=== PATIENT | male | born 1950 | race Caucasian/White ===

== ENCOUNTER 2016-06-22 05:16 | Day surgery (SDC) | payer BC ==
[2016-06-15 09:37] VITALS: BMI 27.0; BMI 28.0
--- NOTE | 2016-06-15 10:25 | PAT Medication Instructions ---
Service Date Jun 15, 2016. Current Home Medication List Ascorbic Acid (Vitamin C), 1 TAB PO QDD Aspirin (Aspirin Ec), 81 MG PO QAM Ctvzinftcmn-Zlepqevzldo-Sez C- (Glucosamine Chondroitin), Unknown Dose PO QAM Multivitamin (Multivitamin), 1 TAB PO QAM Omeprazole (Omeprazole), 1 TAB PO QAM Rivaroxaban (Xarelto), 20 MG PO QAM Medication Instructions For Your Scheduled Surgery Aspirin (Aspirin Ec), 81 MG PO QAM (hold 5 days prior to surgery per surgeon instructions) Rivaroxaban (Xarelto), 20 MG PO QAM (hold 5 days prior to surgery per surgeon instructions- patient will check with surgeon to see if heme wants Lovenox bridge) - Hold the following medications starting today 06/15/16: Wphcvuedtop-Thbzqhxrqhc-Urr C- (Glucosamine Chondroitin), Unknown Dose PO QAM - Hold the following medications the morning of surgery: Multivitamin (Multivitamin), 1 TAB PO QAM Ascorbic Acid (Vitamin C), 1 TAB PO QDD - Take the following medications the morning of surgery with a sip of water: Omeprazole (Omeprazole), 1 TAB PO QAM If you have any questions please call us at [phone] or [phone] ( Kayla) or [phone]
[2016-06-15 10:47] LABS: BASO % 0.4 %; BASO ABS # 0.02 K/uL (0-0.2); COMPLETE YES; EOS % 6.6 %; HEMATOCRIT 43.5 % (42-52); IG% 0.2 %; LYMPH % 26.6 %; LYMPH ABS # 1.36 K/uL (1.2-3.4); MEAN CELL VOLUME 93.3 fL (80-100); MEAN CORPUSCULAR HEMOGLOBIN 32.6 pg (25-34); MEAN CORPUSCULAR HGB CONC 34.9 g/dl (32-36); MEAN PLATELET VOLUME 10.4 fL (7.4-10.4); MONO % 9.2 %; PLATELET COUNT 217 K/uL (130-400); RED BLOOD COUNT 4.66 M/uL (4.7-6.1); WHITE BLOOD COUNT 5.12 K/uL (4.8-10.8)
[2016-06-15 10:50] LABS: URINE APPEARANCE CLEAR (CLEAR); URINE BILIRUBIN NEG (NEG); URINE COLOR YELLOW; URINE NITRITE NEG (NEG); URINE SPECIFIC GRAVITY 1.006 (1.000-1.030); UROBILINOGEN NEG (NEG); ZZUR CULT IF INDIC CLEAN CATCH NO
[2016-06-15 10:54] LABS: MANUAL MICROSCOPIC REQUIRED? NO; REVIEW REQ? NO
[2016-06-15 11:02] LABS: INR 1.2 (0.9-1.1); PARTIAL THROMBOPLASTIN RATIO 1.1; PROTHROMBIN TIME (PATIENT) 13.3 SECONDS (9.0-12.0)
[2016-06-15 11:30] LABS: BUN/CREATININE RATIO 16.7 (10-20); CALCIUM 8.8 mg/dl (8.5-10.1); CREATININE 0.97 mg/dl (0.60-1.40); POTASSIUM 4.3 mmol/L (3.5-5.1)
[~2016-06-22] VITALS: Ht 175.3 cm; Wt 87.0 kg
[~2016-06-22 05:16] MED LIST: ASCO250T4 PO; ASPI81TA28 PO; GLUC1CAP35 PO; MULT-506 PO; OMEP20TA PO; RIVA1TAB4 PO
[2016-06-22] MEDS ORDERED: ENOX120I SQ (05:42)
[2016-06-22 05:44] VITALS: BP 151/85; PULSE 54; TEMP 36.7; O2SAT 98; Ht 175.3 cm; Wt 87.0 kg
[2016-06-22] MEDS ORDERED: CEFAZOLIN 2000 MG/60 ML D5W IV SCH (06:00)
[2016-06-22] MEDS ORDERED: LACTATED RINGER'S 1000ML 1,000 ML IV SCH ×2 (06:00→08:37)
[2016-06-22] MEDS ORDERED: HEPARIN SOD 5000 UNIT/0.5 ML CARP SQ SCH (06:00)
[2016-06-22] MEDS ORDERED: LIDOCAINE HCL 2% 2 ML VIAL (20MG/ML) ONE (06:56)
[2016-06-22] MEDS ORDERED: FENTANYL CITRATE INJ 50 MCG/1 ML 2 ML VIAL ONE (06:56)
[2016-06-22] MEDS ORDERED: PROPOFOL IV EMULSION 10 MG/ML 20 ML VIAL IV ONE (06:56)
[2016-06-22] MEDS ORDERED: MIDAZOLAM HCL 1 MG/ML 2ML VIAL ONE (06:56)
[2016-06-22] MEDS ORDERED: ATROPINE SULFATE 0.1 MG/ML 5ML SYR IV PRN (07:15)
[2016-06-22] MEDS ORDERED: EpHEDrine SULFATE INJ 50 MG/ML AMP IV PRN (07:15)
[2016-06-22] MEDS ORDERED: FENTANYL CITRATE INJ 50 MCG/1 ML 2 ML VIAL IV PRN (07:15)
[2016-06-22] MEDS ORDERED: ONDANSETRON INJ 2 MG/ML 2 ML VIAL IV PRN ×2 (07:15→08:45)
--- NOTE | 2016-06-22 07:16 | History & Physical Bridge Note ---
H&P Re-Evaluation Bridge Note: I have examined the patient, reviewed the History & Physical and in the interval since the performance of the History & Physical I have noted the following changes of clinical significance: No changes noted
[2016-06-22] MEDS ORDERED: HYDR-5688 PO (07:27)
--- NOTE | 2016-06-22 07:29 | Discharge Instructions ---
Discharge Instructions Admission Reason for Admission: Left Inguinal Hernia Discharge Discharge Diagnosis / Problem: left inguinal hernia Discharge Goals Goal(s): Decrease discomfort, Improve function Activity Recommendations Activity Limitations: as noted below Lifting Limitations: no more than 10 pounds Exercise/Sports Limitations: until after follow-up appointment May Resume Sexual Activity: after follow-up appointment Shower/Bathe: tomorrow . Instructions / Follow-Up Instructions / Follow-Up follow up appnt with Dr. Blackmon as scheduled Current Hospital Diet Patient's current hospital diet: Discharge Diet Recommended Diet: Regular Diet Pending Studies Studies pending at discharge: no Medical Emergencies . Who to Call and When: Medical Emergencies: If at any time you feel your situation is an emergency, please call 911 immediately. . Non-Emergent Contact Non-Emergency issues call your: Primary Care Provider, Surgeon Call Non-Emergent contact if: temperature is above 101, your pain is not controlled, wound has increased drainage, wound has increased redness, wound has increased pain . "Provider Documentation" section prepared by Inocente Blackmon. VTE Core Measure Inpt VTE Proph given/why not?: Unfractionated heparin SQ
[2016-06-22] MEDS ORDERED: ONDANSETRON INJ 2 MG/ML 2 ML VIAL ONE (07:39)
[2016-06-22] MEDS ORDERED: DEXAMETHASONE SOD INJ 4 MG/ML VIAL ONE (07:39)
[2016-06-22] MEDS ORDERED: BUPIVACAINE/EPINEPHRINE 0.5% MPF 1:200,000 30 ML VIAL INJ ONE (08:40)
[2016-06-22] MEDS ORDERED: MoRPHine SULFATE 4 MG/ML 1 ML CARP\\VIAL IV PRN (08:45)
[2016-06-22] MEDS ORDERED: HYDROCODONE/ACETAMOPHEN 5/325MG TAB PO PRN (08:45)
[2016-06-22] MEDS ORDERED: KETOROLAC TROMETHAMINE 30 MG/ML VIAL ONE (08:47)
--- NOTE | 2016-06-22 09:00 | [facility] Operative Report ---
Operative Report Operative Date Jun 22, 2016. Pre-Operative Diagnosis Left Inguinal Hernia Post-Operative Diagnosis indirect LIH Procedure(s) Performed open LIH repair with mesh Surgeon Inocente Blackmon [employer] Surgeon(s) none Estimated Blood Loss 10mL Findings indirect LIH Specimens none, Per Surgeon Anesthesia LMA Complication(s) None Disposition Recovery Room / PACU I attest to the content of the Intraoperative Record and any orders documented therein. Any exceptions are noted below.
--- NOTE | 2016-06-22 09:26 | OPERATIVE REPORT ---
DATE OF OPERATION: 06/22/2016 PREOPERATIVE DIAGNOSIS: Left inguinal hernia. POSTOPERATIVE DIAGNOSIS: Indirect left inguinal hernia. PROCEDURE: Open left inguinal hernia repair with mesh. SURGEON: Dr. Blackmon. ESTIMATED BLOOD LOSS: 10 mL COMPLICATIONS: No immediate. ANESTHESIA: General with laryngeal mask airway. OPERATIVE NOTE: After informed consent was obtained, the patient was taken to the operating suite and placed in supine position. After successful intubation, a Ayoub catheter was placed and the left groin was sterilely prepped and draped in usual fashion. A left inguinal incision was made with a 10 blade scalpel and carried down through the soft tissue using electrocautery. The external oblique aponeurosis was skeletonized. Incision was made in it with a new blade and Metzenbaum scissors was used to extend this to the external ring as well as several centimeters proximally. Once in the inguinal canal, we used blunt dissection to separate the cord and cord structures from surrounding tissue. I was able to bluntly use my finger to pick the cord and cord structures off the pubic bone and placed a Delano drain around it. We then began examining the cord. There was a large direct hernia sac associated with it. There was also a cord lipoma associated with the sac. We were able to tease the sac off the cord and cord structures using small amounts of electrocautery and blunt dissection. Once we had it down to its neck, it was rather large to attempt to dunk, so we clamped it with a Maricruz clamp at its neck, divided it with electrocautery and tied it off using 2-0 Vicryl tie. The neck then retracted back into the abdominal cavity. There was no evidence of a direct hernia. The canal looked normal as did the cord and cord structures. We irrigated the canal and then used a piece of polypropylene garcia-holed mesh as an onlay. I secured it distally to Monty's ligament, laterally along the shelving portion of Poupart's ligament, and medially along the midline abdominal musculature. The "arms" of the mesh were wrapped around behind the cord and cord structures and again secured to underlying muscle. At the end of the procedure, the mesh laid flat and tension-free. There was no impingement on the cord. There was adequate hemostasis at the end of the case. We thoroughly irrigated the wound a final time. I injected some Marcaine around the edges of the mesh. I then closed the external oblique aponeurosis using 2-0 Vicryl in a running fashion. Soft tissue was irrigated and closed using 3-0 Vicryl and 4-0 Monocryl. Some additional Marcaine was injected around the skin for postoperative analgesia and skin glue used as a dressing. The patient was awakened, extubated and transferred to recovery in stable condition. I attest to the content of the Intraoperative Record and any orders documented therein. Any exceptio ns are noted below.
[2016-06-22 09:35] VITALS: BP 132/75; PULSE 48; TEMP 36.5; O2SAT 94
[2016-06-22 10:16] VITALS: BP 134/72; PULSE 53; TEMP 36.5; O2SAT 94
--- NOTE | 2016-06-22 10:31 | Anesthesiology Progress Note ---
Anesthesia Post Op Note Date & Time Jun 22, 2016 at 10:30 Vital Signs Pain Intensity: 3 Vital Signs Past 12 Hours Date Time Temp Pulse Resp B/P Pulse Ox O2 Delivery O2 Flow Rate FiO2 06/22/16 10:16 36.5 53 16 134/72 94 Room Air 06/22/16 09:35 36.5 48 16 132/75 94 Room Air 06/22/16 09:30 36.4 56 14 113/71 94 Room Air 06/22/16 09:20 64 14 131/76 94 Room Air 06/22/16 09:10 52 12 134/76 100 Mask 10 06/22/16 09:00 54 12 124/79 100 Mask 10 06/22/16 08:51 36.3 59 16 138/78 100 Mask 10 06/22/16 05:44 36.7 54 18 151/85 98 Room Air Notes Mental Status: alert / awake / arousable, participated in evaluation Pt Amnestic to Procedure: Yes Nausea / Vomiting: adequately controlled Pain: adequately controlled Airway Patency, RR, SpO2: stable & adequate BP & HR: stable & adequate Hydration State: stable & adequate Anesthetic Complications: no major complications apparent
[2016-06-22 10:40] VITALS: BP 136/75; PULSE 53; TEMP 36.5; O2SAT 94
== END 2016-06-22 11:09 | disposition home or self-care (01) ==
LOC: C.ACU 05:16
PROVIDERS: ATTEND Surgery
DX: K40.90 Unilateral inguinal hernia, without obstruction or gangrene, not specified as recurrent (principal); N40.0 Benign prostatic hyperplasia without lower urinary tract symptoms; R97.20 Elevated prostate specific antigen [PSA]; N40.2 Nodular prostate without lower urinary tract symptoms; Z79.899 Other long term (current) drug therapy

== ENCOUNTER → 2017-03-15 | Outpatient (CLI) | payer BC ==
[2017-03-15 14:15] LABS: BUN/CREATININE RATIO 17.6 (10-20); CREATININE 0.96 mg/dl (0.60-1.40)
[2017-03-15 14:20] LABS: % FREE PSA 7.3 %; FREE PSA 0.76 ng/ml; PROSTATE SPECIFIC ANTIGEN 10.4 ng/ml (0.000-4.000)
== END | disposition home or self-care (01) ==
LOC: C.LAB 12:21
PROVIDERS: ATTEND Urology
DX: R97.20 Elevated prostate specific antigen [PSA] (principal)

== ENCOUNTER → 2017-03-22 | Outpatient (CLI) | payer BC ==
[~2017-03-22] MED LIST changes: +GADAVIST IV PRN
--- NOTE | 2017-03-23 13:19 | DIAGNOSTIC IMAGING REPORT ---
PROSTATE MRI COMBO CLINICAL HISTORY: 66 years-old Male presenting with elevated PSA. PSA 9.07 ng/mL. TECHNIQUE: Multisequence, multiplanar MR imaging of the prostate was performed before and after the administration of intravenous contrast. Additional postprocessing was performed on a separate [employer] workstation by the radiologist for 3-D volumetric segmentation of the prostate and contouring of region(s) of interest (LIDYA) for targeting. IV contrast: 8.5 cc Gadavist. COMPARISON: None. FINDINGS: Prostate: The prostate measures 4.9 cm ([employer] prostate boundary segmentation volume 43.79 mL). Mild changes of benign prostatic hyperplasia. Precontrast T1 weighted imaging demonstrates no evidence of intrinsic T1 hyperintensity to suggest hemorrhage. Seminal vesicles normal. No suspicious lesion is apparent in the transition or peripheral zones. Bladder: Normal. Bowel: Visualized portion of the rectum normal. Peritoneum: No free fluid in the pelvis. Lymph nodes: No lymphadenopathy in the visualized portion of the pelvis. Vasculature: Iliac vessels patent. Osseous structures: Normal bone marrow signal intensity. IMPRESSION: 1. No suspicious lesions. 2. Benign prostatic hyperplasia. Electronically signed by: Kenneth Young M.D. 03/23/2017 1:18 PM Dictated Date/Time: 03/22/2017 12:31 PM
== END | disposition home or self-care (01) ==
LOC: C.MRIBC 10:40
PROVIDERS: ATTEND Urology
DX: R97.20 Elevated prostate specific antigen [PSA] (principal)

== ENCOUNTER → 2017-04-26 | Outpatient (CLI) | payer BC ==
[~2017-04-26] MED LIST changes: -GADAVIST IV PRN
[2017-04-26 12:34] LABS: BLOOD UREA NITROGEN 18 mg/dl (7-18); BUN/CREATININE RATIO 19.1 (10-20); CREATININE 0.95 mg/dl (0.60-1.40)
[2017-04-26 12:39] LABS: % FREE PSA 9.2 %; FREE PSA 0.95 ng/ml
== END | disposition home or self-care (01) ==
LOC: C.LAB 09:13
PROVIDERS: ATTEND Urology
DX: R97.20 Elevated prostate specific antigen [PSA] (principal)

== ENCOUNTER → 2017-07-03 | Outpatient (CLI) | payer BC ==
--- NOTE | 2017-07-03 15:34 | DIAGNOSTIC IMAGING REPORT ---
CHEST 2 VIEWS ROUTINE CLINICAL HISTORY: SOB dyspnea COMPARISON STUDY: 03/19/2015 FINDINGS: Minimal atelectasis left base. Lungs otherwise are clear. Diaphragms are smooth. IMPRESSION: Minimal atelectasis left base. Otherwise negative study. The above report was generated using voice recognition software. It may contain grammatical, syntax or spelling errors. Electronically signed by: Pablo Lin M.D. 07/03/2017 3:33 PM Dictated Date/Time: 07/03/2017 3:31 PM
== END | disposition home or self-care (01) ==
LOC: C.RAD1850 15:22
PROVIDERS: ATTEND Student in an Organized Health Care Education/Training Program
DX: R06.02 Shortness of breath (principal)

== ENCOUNTER → 2017-08-08 | Outpatient (CLI) | payer BC | END | disposition home or self-care (01) | LOC: C.LAB 11:46 | PROVIDERS: ATTEND Urology | DX: N40.1 Benign prostatic hyperplasia with lower urinary tract symptoms (principal); R97.20 Elevated prostate specific antigen [PSA] ==

== ENCOUNTER → 2017-09-05 | Outpatient (CLI) | payer BC ==
--- NOTE | 2017-09-05 11:11 | DIAGNOSTIC IMAGING REPORT ---
KUB CLINICAL HISTORY: Nephrolithiasis. Elevated serum PSA levels. FINDINGS: 2 AP supine abdominal radiographs are compared to study dated 05/07/2009 and correlated with abdominal CT dictated 07/23/2014. There is a nonobstructed abdominal bowel gas pattern noting moderate constipation. Colonic contents largely obscure the renal shadows. There is no radiographic evidence of nephrolithiasis. No calcifications are seen projecting along the course of the ureters. Scattered pelvic phleboliths are similar in appearance to the 2008 examination. The skeletal structures are osteopenic. Lumbosacral spondylosis and scoliosis is noted. IMPRESSION: 1. There is no radiographic evidence of nephrolithiasis. 2. Moderate constipation. Electronically signed by: Mainor Fabian M.D. 09/05/2017 11:09 AM Dictated Date/Time: 09/05/2017 11:08 AM
== END | disposition home or self-care (01) ==
LOC: C.RAD 10:55
PROVIDERS: ATTEND Urology
DX: N20.0 Calculus of kidney (principal); R97.20 Elevated prostate specific antigen [PSA]; K59.00 Constipation, unspecified